=== PATIENT | female | born 1975 | race Caucasian/White ===

== ENCOUNTER → 2022-01-17 09:07 | Outpatient (BNVA) | payer BC, OTHER, SELFPAY | PROVIDERS: Family Provider Nurse Practitioner Family; Visit Provider Podiatrist Foot & Ankle Surgery | DX: M72.2 Plantar fascial fibromatosis (principal) | CPT/HCPCS: 73630 ==

== ENCOUNTER 2022-01-31 11:07 | Outpatient (CLI) | payer OTHER, SELFPAY ==
--- NOTE | 2022-01-31 11:19 | MM_ITS ---
WS: [id number] VIEWS: MLO and CC views both breasts. 3D digital tomosynthesis is also included in this exam. No prior exams. Findings: There was no sign of mass, architectural distortion or suspicious calcification in either breast. Fa [place]ty MM/[place] [id number] Impression: BI-RADS: 2-Benign FOLLOW-UP: 1 Year Follow-up This mammogram was also analyzed by the Computer Aided Detection System [employer] Curator.
== END 2022-01-31 11:08 | disposition home or self-care (01) ==
PROVIDERS: Family Provider Nurse Practitioner Family; Visit Provider Nurse Practitioner Family
DX: Z12.31 Encounter for screening mammogram for malignant neoplasm of breast (principal)
CPT/HCPCS: 77063; 77067

== ENCOUNTER 2023-08-06 05:49 | Day surgery (SDC) | payer OTHER, SELFPAY ==
[2023-08-06] VITALS (10 sets, daily range): BP systolic 99–153; BP diastolic 55–91; PULSE 59–79; RESP 16–18; TEMP 36.1–36.5; O2SAT 92–100
[2023-08-06] MEDS: sodium chloride 0.9% 1,000 ML 30 ML IV (06:38)
[2023-08-06 06:48] LABS: OR HCG Qualitative Urine Negative (Negative)
[2023-08-06] MEDS: ceFAZolin 2,000 MG in sodium chloride 0.9% (plus) 50 ML 100 MG IV (07:00)
--- NOTE | 2023-08-06 07:00 | W.PM.OPSUD ---
Surgery/Procedure H&P Update DATE OF PROCEDURE: August 06, 2023 DATE H&P PERFORMED: 07/22/23 H&P UPDATE INFORMATION: I have reviewed H&P completed within last 30 days, I have examined patient prior to procedure and No changes to prior documentation PLANNED PROCEDURE: Operation Date: 08/06/23 07:00 Proposed Procedures p Excision Mass/Lesion/Cyst Lower Extremit /excision of subcutaneous mass of right leg(Right) - Gene Pedraza DO
--- NOTE | 2023-08-06 07:00 | ANES.PREANE2 ---
Pre-Anesthetic Assessment Height/Weight: Height 1.57 m Weight 104.326 kg Temp Pulse Resp BP Pulse Ox O2 Del Method 97.7 F 77 16 153/91 99 Room Air 08/06/23 06:21 08/06/23 06:21 08/06/23 06:21 08/06/23 06:21 08/06/23 06:21 08/06/23 06:21 Operation Date: 08/06/23 07:00 Proposed Procedures p Excision Mass/Lesion/Cyst Lower Extremit /excision of subcutaneous mass of right leg(Right) - Gene Pedraza DO Last intake: Intake Last Liquid Date 08/06/23 Last Liquid Time 21:00 Last Solid Date 08/06/23 Last Solid Time 21:00 Social No alcohol and No tobacco Exam alert, oriented x 3, clear to auscultation bilaterally and regular rate & rhythm Airway Submandibular: within normal limits Cervical ROM: within normal limits Mallampati: Class I History/ROS No significant history except as noted GI Gastroesophageal Reflux Disease (well controlled) Metabolic Morbid Obesity Neuropsych Anxiety Anesthetic Plan ASA status: 3 Anesthesia: MAC Medications/Allergies Home Medications Medication Instructions Recorded Confirmed Last Taken Type buspirone 15 mg tablet 15 mg PO DAILY 01/17/22 08/06/23 08/05/23 History loratadine 10 mg tablet (Claritin) 10 mg PO DAILY 01/17/22 08/06/23 08/05/23 History pantoprazole 40 mg tablet,delayed 40 mg PO DAILY 01/17/22 08/06/23 08/05/23 History release diphenhydramine HCl 25 mg capsule 25 mg PO BEDTIME 08/05/23 08/06/23 08/05/23 History (Benadryl) fluticasone propionate 50 1 spray intranasal DAILY 08/05/23 08/06/23 08/05/23 History mcg/actuation nasal spray,suspension multivitamin 1 tab PO DAILY 08/05/23 08/06/23 08/05/23 History Allergies Allergy/AdvReac Type Severity Reaction Status Date / Time Sulfa (Sulfonamide Allergy Mild Hives Verified 08/05/23 12:21 Antibiotics) Current Medications Generic Name Dose Route Start Last Admin Trade Name Freq PRN Reason Stop Dose Admin Sodium Chloride 1,000 mls @ 30 mls/hr 08/06/23 06:00 08/06/23 06:38 Sodium Chloride 0.9% IV 30 mls/hr .Q24H SHIRA Administration PFSH Anesthesia Medical History (Updated 07/22/23 @ 15:01 by Gene Pedraza DO) Family history of colon cancer Social History Smoking and tobacco/nicotine status: never used tobacco/nicotine Second hand smoke exposure: No Alcohol intake: never Substance/Drug Use: never Female Reproductive History Date of last menstrual period: 08/04/23 Data Anesthesia Cardiac Studies: No Data to Display
[2023-08-06] MEDS: lidocaine-epi 2% PF 1:200,000 20 mL SDV 8 ML XX (07:27)
--- NOTE | 2023-08-06 07:34 | PM.OP ---
Operative Report Date of procedure: August 06, 2023 Pre-op diagnosis: Subcutaneous mass right leg Post-op diagnosis: same Procedure done: Excision of subcutaneous mass right leg (measuring 1.3 cm) Implants: none Specimens removed/disposition: Subcutaneous mass right leg Surgeon: Gene Pedraza DO Anesthesia: General and Local Estimated blood loss (mL): 5 Complications: None apparent Brief History: This very pleasant 47-year-old female with a painful subcutaneous mass of her right leg. She desired excision. The risk and benefits were explained and documented. Procedure: Patient was wheeled operative room and placed on the OR table in the supine position. An LMA was placed by department anesthesia. The right lower extremity was inspected prepped and draped in usual sterile fashion. A timeout was performed. All present were in agreement. An elliptical excision measuring 1.5 cm in the transverse dimension was made over the subcutaneous mass of the right medial distal leg. Electrocautery was then used to shell out a pearly white lobulated firm subcutaneous mass in total. Hemostasis was achieved electrocautery. The mass measured 1.3 cm in greatest diameter. Specimen was passed off for permanent formalin. Dermis was approximated with 3-0 Vicryl in a subcutaneous interrupted fashion. Skin was closed with 4-0 Monocryl in a running subcutaneous fashion. Dermabond was applied. Patient tolerated procedure well.
--- NOTE | 2023-08-06 12:54 | ANE.PACU2 ---
Inpatient post-anesthesia follow up: Vital signs: Temperature 97.6 F Pulse Rate 61 Respiratory Rate 16 Blood Pressure 124/72 Pulse Oximetry 100 Oxygen Delivery Me thod Room Air Oxygen Flow Rate Fraction of Inspir ed Oxygen Hydration adequate: Yes Nausea and vomiting: No Pain level: 3 Mental status: Baseline
== END 2023-08-06 08:48 | disposition home or self-care (01) ==
PROVIDERS: Anesthesiology; Family Provider Nurse Practitioner Family; PCP Nurse Practitioner Family; Visit Provider Surgery
PROC: (CPT 11402; principal; 2023-08-06 07:00)
DX: D36.7 Benign neoplasm of other specified sites (principal); K21.9 Gastro-esophageal reflux disease without esophagitis; E66.01 Morbid (severe) obesity due to excess calories; Z68.41 Body mass index [BMI] 40.0-44.9, adult; F41.9 Anxiety disorder, unspecified; Z80.0 Family history of malignant neoplasm of digestive organs
CPT/HCPCS: 11402; 12031; 81025; 88307; J0690; J2250; J2704; J3010; J7030

== ENCOUNTER 2023-08-30 08:52 | Outpatient (CLI) | payer OTHER, SELFPAY ==
--- NOTE | 2023-08-30 08:59 | MM_ITS ---
WS: [id number] BILATERAL SCREENING DIGITAL TOMOSYNTHESIS MAMMOGRAM WITH CAD HISTORY: SCREEN COMPARISON: 01/31/2022 Bilateral CC and MLO views with tomosynthesis and synthetic mammography submitted. Computer aided det ection analyzed. Breast composition: The breasts are almost entirely fatty. No suspicious masses, microcalcifications or architectural distortion. Stable 4 mm nodule lateral RIGHT breast. No suspicious masses or calcifi cations. MM/[place] [id number] IMPRESSION: BI-RADS: 2-Benign FOLLOW UP: 1 Year Follow-up
== END 2023-08-30 08:53 | disposition home or self-care (01) ==
LOC: RAD 08:52
PROVIDERS: Family Provider Nurse Practitioner Family; PCP Nurse Practitioner Family; Visit Provider Nurse Practitioner Family
DX: Z12.31 Encounter for screening mammogram for malignant neoplasm of breast (principal); R92.313 Mammographic fatty tissue density, bilateral breasts; N63.10 Unspecified lump in the right breast, unspecified quadrant
CPT/HCPCS: 77063; 77067